=== PATIENT | female | born 1965 | race Caucasian/White ===

== ENCOUNTER 2018-06-06 15:21 | Outpatient (CLI) | payer BC | END 2018-06-06 15:22 | disposition home or self-care (01) | LOC: BICMAMMO 15:21 | PROVIDERS: ATTEND Obstetrics & Gynecology | DX: Z12.31 Encounter for screening mammogram for malignant neoplasm of breast (principal) | CPT/HCPCS: 77063; 77067 ==

== ENCOUNTER 2018-08-19 07:35 | Outpatient (CLI) | payer BC ==
--- NOTE | 2018-08-19 08:44 | ULT ---
THYROID ULTRASOUND: 08/19/2018 HISTORY: Nodule seen on screening evaluation at outside facility. FINDINGS: The thyroid gland is enlarged, measuring 5.3 cm x 2.2 cm x 1.8 cm, with the left lobe measuring 5.5 c m x 2.6 cm x 2 cm. The thyroid isthmus is thickened in AP dimension and measures 0.5 cm. The thyroi d gland demonstrates diffuse heterogeneity; however, no discrete measurable mass or nodule is delinea brit. IMPRESSION: Large heterogeneous thyroid gland. No discernible thyroid nodule is appreciated. POS: [facility]
--- NOTE | 2018-08-19 08:51 | ULT ---
ABDOMINAL ULTRASOUND: Date: 08/19/18 HISTORY: Nodules seen in kidney on screening evaluation. History of renal cell carcinoma in father. FINDINGS: The liver demonstrates increased echogenicity, likely reflective of fatty infiltration. No focal hepa tic lesion is seen. There is an echogenic focus within the gallbladder lumen measuring approximately 0.2 cm. This demonst rates posterior shadowing and is compatible with a gallbladder calculus. There is no gallbladder wall thickening or pericholecystic fluid. The common duct measures 0.5 cm in diameter. The very limited visualized portions of the pancreas and visualized portions of the IVC demonstrate, limited visualized portions of the abdominal aorta, spleen, and bilateral kidneys demonstrate a grace l sonographic appearance. The right kidney measures 12.7 cm in length, with the left kidney measuring 10.9 cm in length. Urinary bladder demonstrates a normal sonographic appearance, but is only partially filled with urina ry bladder volume of 88 mL. Post-void urinary bladder volume is 13 mL. IMPRESSION: 1. Fatty infiltration of the liver. 2. Cholelithiasis. Common duct is normal in caliber. 3. No significant post-void residual. POS: [facility]
== END 2018-08-19 07:36 | disposition home or self-care (01) ==
LOC: BICULT 07:35
PROVIDERS: ATTEND Internal Medicine
DX: R94.6 Abnormal results of thyroid function studies (principal); K76.0 Fatty (change of) liver, not elsewhere classified; E04.1 Nontoxic single thyroid nodule; N28.1 Cyst of kidney, acquired; K80.20 Calculus of gallbladder without cholecystitis without obstruction
CPT/HCPCS: 76536; 76700; 76856

== ENCOUNTER 2019-07-28 14:20 | Outpatient (CLI) | payer BC ==
--- NOTE | 2019-07-28 15:28 | MMO ---
Bilateral MAMMO Bilat Screen [facility]. CLINICAL HISTORY: Patient is 53 years old and is seen for screening. The patient has no family history of breast cancer. The patient has no personal history of cancer. VIEWS: The views performed were: bilateral craniocaudal with tomosynthesis; bilateral mediolateral oblique with tomosynthesis; and right mediolateral oblique. FILMS COMPARED: The present examination has been compared to prior imaging studies performed at [facility] on 09/14/2014, 09/29/2015, 09/29/2016 and 06/06/2018. This study has been interpreted with the assistance of computer-aided detection. MAMMOGRAM FINDINGS: There are scattered fibroglandular densities. There are no suspicious masses, suspicious calcifications, or new areas of architectural distortion. IMPRESSION: THERE IS NO MAMMOGRAPHIC EVIDENCE OF MALIGNANCY. A ROUTINE FOLLOW-UP MAMMOGRAM IN 1 YEAR IS RECOMMENDED. THE RESULTS OF THIS EXAM WERE SENT TO THE PATIENT. ACR BI-RADS Category 1 - Negative MAMMOGRAPHY NOTE: 1. A negative mammogram report should not delay a biopsy if a dominant of clinically suspicious mass is present. 2. Approximately 10% to 15% of breast cancers are not detected by mammography. 3. Adenosis and dense breasts may obscure an underlying neoplasm. Reported by: LAURYN CHURCH MD Electonically Signed: [id number]
== END 2019-07-28 14:21 | disposition home or self-care (01) ==
LOC: BICMAMMO 14:20
PROVIDERS: ATTEND Obstetrics & Gynecology
DX: Z12.31 Encounter for screening mammogram for malignant neoplasm of breast (principal)
CPT/HCPCS: 77063; 77067

== ENCOUNTER 2019-08-11 15:35 | Outpatient (CLI) | payer BC ==
--- NOTE | 2019-08-11 16:33 | RAD ---
Lumbar spine 2 views HISTORY: Low back pain. FINDINGS: Standing views. There are 5 lumbar type vertebrae. Pedicles are intact. Vertebral body heig hts and alignment are maintained. Osteophytosis throughout the vertebral bodies and lower facets. Disc space narrowing at the L4-5 level. No acute fracture or dislocation are apparent. IMPRESSION: Degenerative changes lower lumbar spine. No evidence of compression fracture.
--- NOTE | 2019-08-11 16:33 | RAD ---
Cervical spine 5 views HISTORY: Neck pain. FINDINGS: There is gentle reversal of the normal lordotic curvature. Vertebral body heights are maint ained. Minimal degenerative retrolisthesis at the C4-5 level. Moderate osteophytosis throughout the vertebral bodies. No acute fracture or dislocation evident. 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 IMPRESSION: Mild degenerative changes cervical spine. No acute osseous abnormalities are demonstrated .
--- NOTE | 2019-08-11 16:36 | RAD ---
Sacrum/coccyx 3 views HISTORY: Sacral pain. FINDINGS: Mild joint space narrowing and prominent osteophytosis and subchondral sclerosis at the sac roiliac joints. Sacral alae are intact. No acute fracture or dislocation evident. Mild degenerative changes of the hips are apparent. IMPRESSION: Osteoarthritic changes of the sacroiliac joints. No acute osseous abnormalities are demon strated.
== END 2019-08-11 15:36 | disposition home or self-care (01) ==
LOC: BICRAD 15:35
PROVIDERS: ATTEND Internal Medicine
DX: M54.5 Low back pain (principal); M54.2 Cervicalgia; G44.209 Tension-type headache, unspecified, not intractable; M47.898 Other spondylosis, sacral and sacrococcygeal region; M47.816 Spondylosis without myelopathy or radiculopathy, lumbar region; M47.812 Spondylosis without myelopathy or radiculopathy, cervical region
CPT/HCPCS: 72040; 72100; 72220

== ENCOUNTER 2020-08-18 15:27 | Outpatient (CLI) | payer BC ==
[2020-08-18 18:18] LABS: #Eosinphils 0.1 10x3/uL (0.0-0.5); #Monocytes 0.5 10x3/uL (0.0-1.1); #Neutrophils 3.2 10x3/uL (1.5-8.4); %Basophils 0.6 % (0.0-2.0); %Eosinophils 1.6 % (0.0-6.0); %Lymphocytes 38.2 % (18.0-47.0); %Monocytes 7.3 % (0.0-10.0); Hemoglobin 15.3 g/dL (12.0-15.5); Mean Corpuscular HGB CONC 33.9 g/dL (32.0-36.0); Mean Corpuscular Hemoglobin 28.9 pg (27.0-33.0); Mean Corpuscular Volume 85.1 fl (81.6-98.3); Mean Platelet Volume 11.2 fl (7.4-10.4); Platelet Count 270 10x3/uL (150-450); White Blood Cell (WBC) Count 6.2 10x3/uL (3.5-10.5)
[2020-08-18 18:34] LABS: Anion Gap 18 mmol/L (10-20); BUN (Urea Nitrogen) 11 mg/dL (9.8-20.1); Calc. Creatinine Clearance 0 mL/min (70-130); Calcium 9.9 mg/dL (7.8-10.44); Carbon Dioxide 23 mmol/L (22-29); Chloride 103 mmol/L (98-107); Glucose 83 mg/dL (70-105); Potassium 4.7 mmol/L (3.5-5.1); Sodium 139 mmol/L (136-145)
[2020-08-19 05:53] LABS: SARS-CoV-2 PCR by NAA Not Detected (NotDetected)
--- NOTE | 2020-08-19 21:02 | EKG ---
Test Reason : Blood Pressure : / mmHG Vent. Rate : 061 BPM Atrial Rate : 061 BPM P-R Int : 180 ms QRS Dur : 086 ms QT Int : 392 ms P-R-T Axes : 058 081 033 degrees QTc Int : 394 ms Normal sinus rhythm Right atrial enlargement Nonspecific T wave abnormality Abnormal ECG No previous ECGs available Confirmed by Jacquie BAIRD ([id number]) on 08/19/2020 9:01:59 PM Referred By: ABHIJIT Confirmed By:Jacquie BAIRD
== END 2020-08-18 15:28 | disposition home or self-care (01) ==
LOC: LABBT 15:27
PROVIDERS: ATTEND Surgery
DX: Z01.818 Encounter for other preprocedural examination (principal); Z20.822 Contact with and (suspected) exposure to COVID-19; K60.2 Anal fissure, unspecified
CPT/HCPCS: 80048; 85025; 87635; 93005; 93010; U0003; U0005

== ENCOUNTER 2020-08-23 06:06 | Day surgery (SDC) | payer BC ==
[2020-08-20 11:36] VITALS: BMI 34.9
[2020-08-23] MEDS ORDERED: Levofloxacin 500 mg/D5W 100 ml Premix Bag ONE (06:19)
[2020-08-23] MEDS ORDERED: Lidocaine 1% w/Epinephrine 1:100K 20 ML VIAL ONE (06:30)
[2020-08-23] MEDS ORDERED: Bupivacaine PF 0.5% 30 ML VIAL ONE (06:30)
[2020-08-23] MEDS ORDERED: Bacitracin Zinc Ointment 30 gm TUBE ONE (06:31)
[2020-08-23] MEDS ORDERED: Fentanyl 100 MCG/2 ML VIAL ONE ×2 (07:06→07:52)
[2020-08-23] MEDS ORDERED: Midazolam HCl 2 mg/2 ml Vial ONE (07:20)
[2020-08-23] MEDS ORDERED: Lidocaine 2% Jelly 5 ML TUBE ONE (07:54)
[2020-08-23] MEDS ORDERED: Metoclopramide HCl 10 MG/2 ML VIAL ONE (10:04)
[2020-08-23] MEDS ORDERED: Ondansetron PF 4 MG/2 ML Vial ONE (10:04)
[2020-08-23] MEDS ORDERED: Lidocaine 1% PF 5 ML VIAL ONE (10:04)
[2020-08-23] MEDS ORDERED: Ketorolac Tromethamine 30 MG/ML VIAL ONE (10:04)
[2020-08-23] MEDS ORDERED: Dexamethasone 20 MG/5 ML VIAL ONE (10:04)
[2020-08-23] MEDS ORDERED: PROPOFOL 200 MG/20 ML VIAL ONE (10:04)
--- NOTE | 2020-08-23 10:22 | OP ---
DATE OF PROCEDURE: 08/23/2020 PREOPERATIVE DIAGNOSIS: Chronic anal fissure. PROCEDURE PERFORMED: Lateral internal sphincterotomy with excision of sentinel pile. INDICATIONS: The patient is a 54-year-old female, who has been having quite a bit of anal pain. Exam revealed a fissure. We tried Botox injection, which helped a little bit, but continued to have pain primarily with bowel movements and a persistent fissure. FINDINGS: chronic anal fissures both anterior and posterior and a small sentinel pile. She had prominent grade 3 internal hemorrhoids. DESCRIPTION OF PROCEDURE: After informed consent was obtained, the patient was taken to the operating room, given general endotracheal anesthesia, placed in the lithotomy position. She had undergone mechanical bowel prep at home. The perianal region was prepped and draped in usual fashion. The bivalve anal retractor was inserted. Retraction was achieved. The sentinel pile was excised with electrocautery. Local anesthesia had been given subcutaneously and deep as a four-quadrant anal block with Marcaine. An incision was made in the intersphincteric groove on the left. The anoderm and anal mucosa bluntly dissected from the internal sphincter. Internal sphincter bluntly dissected from the external sphincter and sharply divided. Direct pressure was held and then the skin was closed with 3-0 chromic suture. Gelfoam impregnated with bacitracin was inserted within the anal canal. Sterile bandage was applied. The patient tolerated the procedure well, transferred to Recovery in good condition. Sponge and needle count verified correct x2. Job ID: [id number]
== END 2020-08-23 10:05 | disposition home or self-care (01) ==
LOC: SDC 06:06
PROVIDERS: ATTEND Surgery
PROC: 0D8R0ZZ Division of Anal Sphincter, Open Approach (ICD-10-PCS; principal; 2020-08-23)
DX: K60.1 Chronic anal fissure (principal); I10 Essential (primary) hypertension; E78.5 Hyperlipidemia, unspecified; E03.9 Hypothyroidism, unspecified; M19.90 Unspecified osteoarthritis, unspecified site; G43.909 Migraine, unspecified, not intractable, without status migrainosus; Z79.899 Other long term (current) drug therapy; Z88.0 Allergy status to penicillin
CPT/HCPCS: 88304; J1100; J1885; J1956; J2250; J2405; J2704; J2765; J3010; S0020

== ENCOUNTER 2020-11-24 14:36 | Outpatient (CLI) | payer BC | END 2020-11-24 14:37 | disposition home or self-care (01) | LOC: BICMAMMO 14:36 | PROVIDERS: ATTEND Obstetrics & Gynecology | DX: Z12.31 Encounter for screening mammogram for malignant neoplasm of breast (principal) | CPT/HCPCS: 77063; 77067 ==

== ENCOUNTER 2021-02-16 15:41 | Inpatient (IN) | payer BC ==
[2021-02-16 16:14] LABS: #Monocytes 0.5 thou/uL (0.11-0.59); #Neutrophils 5.3 thou/uL (1.40-6.50); %Basophils 0.1 % (0.0-1.0); %Eosinophils 0.1 % (0.0-10.0); %Lymphocytes 14.4 % (21.0-51.0); %Monocytes 6.9 % (0.0-10.0); %Neutrophils 78.5 % (42.0-75.0); Hemoglobin 14.7 g/dL (12.0-16.0); Mean Corpuscular HGB CONC 35.7 g/dL (32.0-36.0); Mean Corpuscular Hemoglobin 29.9 pg (27.0-31.0); Mean Corpuscular Volume 83.7 fL (78.0-98.0); Mean Platelet Volume 8.6 fL (7.4-10.4); Platelet Count 171 thou/uL (130-400); RBC Distribution Width 11.5 % (11.5-14.5); Red Blood Cell (RBC) Count 4.91 mill/uL (4.20-5.40); White Blood Cell (WBC) Count 6.8 thou/uL (4.8-10.8)
[2021-02-16 16:32] LABS: ALT (SGPT) 55 U/L (8-55); AST (SGOT) 49 U/L (5-34); Albumin 4.1 g/dL (3.5-5.0); Alkaline Phosphatase 65 U/L (40-110); Anion Gap 16 mmol/L (10-20); BUN (Urea Nitrogen) 15 mg/dL (9.8-20.1); Bilirubin, Total 0.9 mg/dL (0.2-1.2); Calc. Creatinine Clearance 0 mL/min (70-130); Calcium 8.5 mg/dL (7.8-10.44); Carbon Dioxide 24 mmol/L (22-29); Chloride 97 mmol/L (98-107); Globulin 2.7 g/dL (2.4-3.5); Glucose 130 mg/dL (70-105); Potassium 3.3 mmol/L (3.5-5.1); Protein, Total 6.8 g/dL (6.0-8.3); Sodium 134 mmol/L (136-145)
[2021-02-16] MEDS ORDERED: Acetaminophen 500 MG TAB ONE ×2 (16:38→20:00)
[2021-02-16] MEDS ORDERED: Promethazine HCl 25 MG/ML VIAL ONE (17:14)
[2021-02-16] MEDS ORDERED: Dexamethasone 10 MG/ML VIAL ONE (17:14)
[2021-02-16] MEDS ORDERED: Lactated Ringer's 1,000 ML IV SCH (22:05)
[2021-02-16] MEDS ORDERED: Senokot S 8.6-50 MG TAB PO PRN (22:05)
[2021-02-16] MEDS ORDERED: Acetaminophen 325 MG TAB PO PRN ×2 (22:05→22:15)
[2021-02-16] MEDS ORDERED: Ondansetron PF 4 MG/2 ML Vial IVP PRN ×2 (22:05→22:15)
[2021-02-16] MEDS ORDERED: Albuterol Sulfate 2.5 mg/3 ml Neb EZPAP PRN (22:05)
[2021-02-16] MEDS ORDERED: Ondansetron ODT 4 MG TAB SL PRN (22:15)
[2021-02-16] MEDS ORDERED: Potassium Chloride 20 MEQ TAB PO SCH (22:15)
[2021-02-16] MEDS ORDERED: Sodium Chloride 0.9% 1,000 ML IV SCH (22:15)
[2021-02-16] MEDS ORDERED: Famotidine 20 MG TAB PO SCH (22:30)
[2021-02-16 22:54] LABS: Lactic Acid 1.1 mmol/L (0.5-2.2)
[2021-02-16] MEDS: Azithromycin 500 MG in Sodium Chloride 0.9% 250 ML 250 ML IVPB SCH (23:06)
[2021-02-16 23:53] VITALS: BMI 34.7
[2021-02-17] MEDS: cefTRIAXone\\ROCEPHIN 1 GM in Sodium Chloride 0.9% 100 ML IVPB SCH ×2 (01:09→23:47)
[2021-02-17] MEDS: Sodium Chloride 0.9% 1,000 ML IV SCH ×2 (02:00→13:38)
[2021-02-17 05:22] LABS: #Basophils 0.1 thou/uL (0.0-0.2); #Monocytes 0.4 thou/uL (0.11-0.59); #Neutrophils 4.1 thou/uL (1.40-6.50); %Basophils 1.9 % (0.0-1.0); %Eosinophils 0.2 % (0.0-10.0); %Lymphocytes 17.2 % (21.0-51.0); %Monocytes 7.1 % (0.0-10.0); %Neutrophils 73.7 % (42.0-75.0); Hemoglobin 14.1 g/dL (12.0-16.0); Mean Corpuscular HGB CONC 34.3 g/dL (32.0-36.0); Mean Corpuscular Hemoglobin 28.9 pg (27.0-31.0); Mean Corpuscular Volume 84.3 fL (78.0-98.0); Mean Platelet Volume 8.9 fL (7.4-10.4); Platelet Count 153 thou/uL (130-400); RBC Distribution Width 11.5 % (11.5-14.5); Red Blood Cell (RBC) Count 4.88 mill/uL (4.20-5.40); White Blood Cell (WBC) Count 5.6 thou/uL (4.8-10.8)
[2021-02-17 05:45] LABS: ALT (SGPT) 48 U/L (8-55); AST (SGOT) 42 U/L (5-34); Albumin 3.8 g/dL (3.5-5.0); Alkaline Phosphatase 56 U/L (40-110); Anion Gap 13 mmol/L (10-20); BUN (Urea Nitrogen) 17 mg/dL (9.8-20.1); Bilirubin, Direct 0.2 mg/dL (0.1-0.3); Bilirubin, Total 0.6 mg/dL (0.2-1.2); CRP (Inflammatory) 3.72 mg/dL (= or < 0.5); Calc. Creatinine Clearance 129 mL/min (70-130); Calcium 8.4 mg/dL (7.8-10.44); Carbon Dioxide 24 mmol/L (22-29); Chloride 101 mmol/L (98-107); Glucose 172 mg/dL (70-105); Potassium 3.3 mmol/L (3.5-5.1); Sodium 135 mmol/L (136-145)
[2021-02-17 07:06] LABS: SARS-CoV-2 NAA Rapid Test DETECTED (NotDetected)
[2021-02-17] MEDS: Famotidine 20 MG TAB PO SCH ×2 (09:30→20:05)
[2021-02-17] MEDS: Zinc Sulfate 220 MG CAP PO SCH (09:30)
[2021-02-17] MEDS: Dexamethasone 10 MG/ML VIAL SLOW IVP SCH (09:31)
[2021-02-17] MEDS: Enoxaparin Sodium 30 MG/0.3 ML SYRINGE SC SCH (09:44)
[2021-02-17] MEDS: Ascorbic Acid 500 mg Chewable Tablet PO SCH (09:44)
[2021-02-17] MEDS: Mometasone 200 MCG/Formoterol 5 MCG 120 PUFF INHALER INH SCH ×2 (10:15→18:07)
[2021-02-17] MEDS ORDERED: HYDROcodone/Acetaminophen 5/325 mg Tablet PO PRN ×2 (10:16→10:31)
[2021-02-17] MEDS ORDERED: REMDESIVIR 200 MG in Sodium Chloride 0.9% 250 ML 210 ML IV SCH (10:30)
[2021-02-17 12:45] LABS: Legionella Urinary Ag Negative (Negative)
[2021-02-17 12:45] LABS: Strep pneumo Urine Ag NEGATIVE (NEGATIVE)
[2021-02-17] MEDS: Amlodipine 10 MG TAB PO SCH (20:05)
[2021-02-17] MEDS: Latanoprost 0.005% Ophth Soln 2.5 ml Bottle EA EYE SCH (20:06)
[2021-02-17] MEDS ORDERED: Non-Formulary Item 1 EACH (Latanoprost/Pf [Latanoprost 0.005% Eye Drop] 7.5 ML Drops) OP SCH (21:00)
[2021-02-17] MEDS ORDERED: Amlodipine 10 MG TAB PO SCH (21:00)
[2021-02-18] MEDS: Azithromycin 500 MG in Sodium Chloride 0.9% 250 ML 250 ML IVPB SCH ×2 (02:54→22:56)
[2021-02-18] MEDS: Sodium Chloride 0.9% 1,000 ML IV SCH ×3 (04:39→18:12)
[2021-02-18 05:08] LABS: Anion Gap 10 mmol/L (10-20); BUN (Urea Nitrogen) 16 mg/dL (9.8-20.1); CRP (Inflammatory) 2.34 mg/dL (= or < 0.5); Calc. Creatinine Clearance 147 mL/min (70-130); Calcium 8.2 mg/dL (7.8-10.44); Carbon Dioxide 25 mmol/L (22-29); Chloride 107 mmol/L (98-107); Glucose 134 mg/dL (70-105); Potassium 3.1 mmol/L (3.5-5.1); Sodium 139 mmol/L (136-145)
[2021-02-18] MEDS: Mometasone 200 MCG/Formoterol 5 MCG 120 PUFF INHALER INH SCH ×2 (08:03→18:11)
[2021-02-18] MEDS: Ascorbic Acid 500 mg Chewable Tablet PO SCH (08:04)
[2021-02-18] MEDS: REMDESIVIR 100 MG in Sodium Chloride 0.9% 250 ML 230 ML IV SCH (08:04)
[2021-02-18] MEDS: Zinc Sulfate 220 MG CAP PO SCH (08:04)
[2021-02-18] MEDS: Famotidine 20 MG TAB PO SCH ×2 (08:04→21:16)
[2021-02-18] MEDS: Enoxaparin Sodium 30 MG/0.3 ML SYRINGE SC SCH (08:04)
[2021-02-18] MEDS: Levothyroxine Sodium 100 MCG TAB PO SCH (08:04)
[2021-02-18] MEDS: Dexamethasone 10 MG/ML VIAL SLOW IVP SCH (08:39)
[2021-02-18] MEDS ORDERED: Potassium Chloride 20 MEQ TAB PO SCH ×2 (09:00→17:00)
[2021-02-18 09:35] LABS: Magnesium 2.3 mg/dL (1.6-2.6)
[2021-02-18] MEDS: Amlodipine 10 MG TAB PO SCH (21:16)
[2021-02-18] MEDS: Latanoprost 0.005% Ophth Soln 2.5 ml Bottle EA EYE SCH (21:18)
[2021-02-19] MEDS: cefTRIAXone\\ROCEPHIN 1 GM in Sodium Chloride 0.9% 100 ML IVPB SCH (00:05)
[2021-02-19 05:14] LABS: #Lymphocytes 1.3 thou/uL (1.20-3.40); #Monocytes 0.5 thou/uL (0.11-0.59); #Neutrophils 5.2 thou/uL (1.40-6.50); %Basophils 0.5 % (0.0-1.0); %Eosinophils 0.1 % (0.0-10.0); %Monocytes 7.1 % (0.0-10.0); %Neutrophils 73.3 % (42.0-75.0); Hemoglobin 13.9 g/dL (12.0-16.0); Mean Corpuscular HGB CONC 35.5 g/dL (32.0-36.0); Mean Corpuscular Hemoglobin 30.3 pg (27.0-31.0); Mean Corpuscular Volume 85.4 fL (78.0-98.0); Mean Platelet Volume 8.5 fL (7.4-10.4); Platelet Count 212 thou/uL (130-400); RBC Distribution Width 11.5 % (11.5-14.5); Red Blood Cell (RBC) Count 4.57 mill/uL (4.20-5.40)
[2021-02-19] MEDS: Mometasone 200 MCG/Formoterol 5 MCG 120 PUFF INHALER INH SCH ×2 (05:19→17:54)
[2021-02-19 05:40] LABS: Phosphorus 2.5 mg/dL (2.3-4.7)
[2021-02-19 05:44] LABS: ALT (SGPT) 57 U/L (8-55); AST (SGOT) 38 U/L (5-34); Albumin 3.4 g/dL (3.5-5.0); Alkaline Phosphatase 51 U/L (40-110); Anion Gap 14 mmol/L (10-20); BUN (Urea Nitrogen) 15 mg/dL (9.8-20.1); Bilirubin, Total 0.4 mg/dL (0.2-1.2); Calc. Creatinine Clearance 145 mL/min (70-130); Calcium 8.4 mg/dL (7.8-10.44); Carbon Dioxide 17 mmol/L (22-29); Chloride 113 mmol/L (98-107); Globulin 3.3 g/dL (2.4-3.5); Glucose 118 mg/dL (70-105); Magnesium 2.2 mg/dL (1.6-2.6); Potassium 3.8 mmol/L (3.5-5.1); Protein, Total 6.7 g/dL (6.0-8.3); Sodium 140 mmol/L (136-145)
[2021-02-19] MEDS: Levothyroxine Sodium 100 MCG TAB PO SCH (08:28)
[2021-02-19] MEDS: Enoxaparin Sodium 30 MG/0.3 ML SYRINGE SC SCH (08:28)
[2021-02-19] MEDS: Zinc Sulfate 220 MG CAP PO SCH (08:28)
[2021-02-19] MEDS: Famotidine 20 MG TAB PO SCH ×2 (08:28→21:38)
[2021-02-19] MEDS: Ascorbic Acid 500 mg Chewable Tablet PO SCH (08:41)
[2021-02-19] MEDS: Dexamethasone 10 MG/ML VIAL SLOW IVP SCH (08:42)
[2021-02-19] MEDS: REMDESIVIR 100 MG in Sodium Chloride 0.9% 250 ML 230 ML IV SCH (09:19)
[2021-02-19] MEDS: Sodium Chloride 0.9% 1,000 ML IV SCH (13:06)
[2021-02-19] MEDS: Amlodipine 10 MG TAB PO SCH (21:38)
[2021-02-19] MEDS: Latanoprost 0.005% Ophth Soln 2.5 ml Bottle EA EYE SCH (21:52)
[2021-02-19] MEDS: Guaifenesin DM 100-10/5 ML UDCUP PO PRN (22:33)
[2021-02-19] MEDS: Azithromycin 500 MG in Sodium Chloride 0.9% 250 ML 250 ML IVPB SCH (23:55)
[2021-02-20] MEDS: cefTRIAXone\\ROCEPHIN 1 GM in Sodium Chloride 0.9% 100 ML IVPB SCH (00:04)
[2021-02-20] MEDS: Mometasone 200 MCG/Formoterol 5 MCG 120 PUFF INHALER INH SCH ×2 (06:50→18:30)
[2021-02-20 06:51] LABS: #Lymphocytes 1.1 thou/uL (1.20-3.40); #Monocytes 0.5 thou/uL (0.11-0.59); #Neutrophils 4.8 thou/uL (1.40-6.50); %Eosinophils 0.4 % (0.0-10.0); %Lymphocytes 17.2 % (21.0-51.0); %Monocytes 8.2 % (0.0-10.0); %Neutrophils 74.2 % (42.0-75.0); Hemoglobin 13.2 g/dL (12.0-16.0); Mean Corpuscular HGB CONC 34.1 g/dL (32.0-36.0); Mean Corpuscular Hemoglobin 29.4 pg (27.0-31.0); Mean Corpuscular Volume 86.1 fL (78.0-98.0); Mean Platelet Volume 8.4 fL (7.4-10.4); Platelet Count 203 thou/uL (130-400); RBC Distribution Width 11.5 % (11.5-14.5); White Blood Cell (WBC) Count 6.5 thou/uL (4.8-10.8)
[2021-02-20 07:12] LABS: ALT (SGPT) 57 U/L (8-55); AST (SGOT) 28 U/L (5-34); Albumin 3.3 g/dL (3.5-5.0); Alkaline Phosphatase 48 U/L (40-110); Anion Gap 10 mmol/L (10-20); BUN (Urea Nitrogen) 14 mg/dL (9.8-20.1); Bilirubin, Total 0.5 mg/dL (0.2-1.2); Calc. Creatinine Clearance 159 mL/min (70-130); Calcium 8.3 mg/dL (7.8-10.44); Carbon Dioxide 23 mmol/L (22-29); Chloride 109 mmol/L (98-107); Globulin 2.6 g/dL (2.4-3.5); Glucose 114 mg/dL (70-105); Potassium 3.3 mmol/L (3.5-5.1); Protein, Total 5.9 g/dL (6.0-8.3); Sodium 139 mmol/L (136-145)
[2021-02-20] MEDS: Ascorbic Acid 500 mg Chewable Tablet PO SCH (08:53)
[2021-02-20] MEDS: Enoxaparin Sodium 30 MG/0.3 ML SYRINGE SC SCH (08:53)
[2021-02-20] MEDS: Zinc Sulfate 220 MG CAP PO SCH (08:54)
[2021-02-20] MEDS: Levothyroxine Sodium 100 MCG TAB PO SCH (08:54)
[2021-02-20] MEDS: Famotidine 20 MG TAB PO SCH ×2 (08:54→20:43)
[2021-02-20] MEDS: REMDESIVIR 100 MG in Sodium Chloride 0.9% 250 ML 230 ML IV SCH (08:55)
[2021-02-20] MEDS ORDERED: Potassium Chloride 20 MEQ TAB PO SCH (09:30)
[2021-02-20] MEDS: Dexamethasone 10 MG/ML VIAL SLOW IVP SCH (11:44)
[2021-02-20] MEDS: Amlodipine 10 MG TAB PO SCH (20:43)
[2021-02-20] MEDS: Latanoprost 0.005% Ophth Soln 2.5 ml Bottle EA EYE SCH (20:44)
[2021-02-20] MEDS: Guaifenesin DM 100-10/5 ML UDCUP PO PRN (20:47)
[2021-02-21] MEDS: Mometasone 200 MCG/Formoterol 5 MCG 120 PUFF INHALER INH SCH (05:32)
[2021-02-21 07:50] VITALS: BP 127/80; TEMP 98.1
[2021-02-21] MEDS: Famotidine 20 MG TAB PO SCH (08:43)
[2021-02-21] MEDS: Dexamethasone 10 MG/ML VIAL SLOW IVP SCH (08:44)
[2021-02-21] MEDS: Zinc Sulfate 220 MG CAP PO SCH (08:44)
[2021-02-21] MEDS: Ascorbic Acid 500 mg Chewable Tablet PO SCH (08:44)
[2021-02-21] MEDS: Enoxaparin Sodium 30 MG/0.3 ML SYRINGE SC SCH (08:45)
[2021-02-21] MEDS: REMDESIVIR 100 MG in Sodium Chloride 0.9% 250 ML 230 ML IV SCH (08:46)
[2021-02-21] MEDS ORDERED: Labetalol HCl 100 MG/20 ML VIAL ONE (08:49)
[2021-02-21] MEDS: Levothyroxine Sodium 100 MCG TAB PO SCH (08:52)
== END 2021-02-21 12:12 | disposition home or self-care (01) | DRG 871 ==
LOC: ERS 15:41 → 2SW 18:23 → OBSVTOIN 22:05 → T4-A 02-19 18:49
PROVIDERS: ADMIT Internal Medicine; ATTEND Internal Medicine
PROC: 8E0ZXY6 Isolation (ICD-10-PCS; 2021-02-16)
PROC: 3E0333Z Introduction of Anti-inflammatory into Peripheral Vein, Percutaneous Approach (ICD-10-PCS; 2021-02-16)
PROC: XW033E5 Introduction of Remdesivir Anti-infective into Peripheral Vein, Percutaneous Approach, New Technology Group 5 (ICD-10-PCS; principal; 2021-02-17)
DX: A41.89 Other specified sepsis (principal); U07.1 COVID-19; J96.01 Acute respiratory failure with hypoxia; J12.82 Pneumonia due to coronavirus disease 2019; E87.1 Hypo-osmolality and hyponatremia; R65.20 Severe sepsis without septic shock; E87.6 Hypokalemia; E66.9 Obesity, unspecified; R74.01 Elevation of levels of liver transaminase levels; I10 Essential (primary) hypertension; H40.9 Unspecified glaucoma; E03.9 Hypothyroidism, unspecified; J45.909 Unspecified asthma, uncomplicated; E86.0 Dehydration; I45.81 Long QT syndrome; Z68.34 Body mass index [BMI] 34.0-34.9, adult; Z88.0 Allergy status to penicillin; Z79.899 Other long term (current) drug therapy; Z79.890 Hormone replacement therapy; Z90.81 Acquired absence of spleen
CPT/HCPCS: 36415; 71045; 80048; 80053; 80076; 82728; 83605; 83735; 84100; 84145; 84484; 85025; 85379; 86140; 87040; 87449; 87899; 93005; 94760; 96365; 96375; G0378; J0456; J0696; J1100; J1650; J2405; J2550; J3490; J7050; U0002

== ENCOUNTER 2021-05-25 08:39 | Outpatient (CLI) | payer BC | END 2021-05-25 08:40 | disposition home or self-care (01) | LOC: BICRAD 08:39 | PROVIDERS: ATTEND Internal Medicine Pulmonary Disease | DX: U09.9 Post COVID-19 condition, unspecified (principal) | CPT/HCPCS: 71046 ==

== ENCOUNTER 2022-01-10 07:54 | Outpatient (CLI) | payer BC | END 2022-01-10 07:55 | disposition home or self-care (01) | LOC: BICMAMMO 07:54 | PROVIDERS: ATTEND Obstetrics & Gynecology | DX: Z12.31 Encounter for screening mammogram for malignant neoplasm of breast (principal) | CPT/HCPCS: 77063; 77067 ==

== ENCOUNTER 2023-02-12 11:12 | Outpatient (CLI) | payer BC | END 2023-02-12 11:13 | disposition home or self-care (01) | LOC: RAD 11:12 | PROVIDERS: ATTEND Family Medicine | DX: R05.3 Chronic cough (principal) | CPT/HCPCS: 71046 ==

== ENCOUNTER 2025-05-06 08:28 | Outpatient (CLI) | payer BC | END 2025-05-06 08:29 | disposition home or self-care (01) | LOC: BICRAD 08:28 | PROVIDERS: ATTEND Family Medicine | DX: R05.3 Chronic cough (principal) | CPT/HCPCS: 71046 ==